=== PATIENT | female | born 1950 | race African-American/Black ===

== ENCOUNTER 2017-01-17 08:56 | Inpatient (IN) | payer OTHER ==
[2017-01-17] VITALS (43 sets, daily range): BP systolic 96–203; BP diastolic 49–150
[~2017-01-17] VITALS: Ht 160 cm; Wt 67.1 kg
--- NOTE | ~2017-01-17 | HC ---
[facility] [place] [address] CONSULTATION Name: AGUS JOLLEY Room #: 538-P [facility] IN M.R.#: [id number] Admission: 01/17/17 Attend Phys: Bill Britt MD Discharge: Date of : 54 Report #: [id number] THIS REPORT FOR: //name// CC: FAM unknown Bill Britt DATE OF SERVICE: 01/18/2017 REASON FOR CONSULTATION: I was asked to evaluate concerning fever, sepsis and back pain. HISTORY OF PRESENT ILLNESS: The patient is a 66-year-old who presented through the Emergency Room on 01/17/2017 with a 2-day history of persistent low back pain, along with this has been fever. Mild chills. No trauma. She does use street drugs, but denies any IV drug use. No previous arthritis or back pain issues. REVIEW OF SYSTEMS: Also notes, a mild cough with minimal sputum production. She has been nauseated. She had emesis today. No abdominal pain. No dysuria or frequency noted. She has sexually active. No arthritis symptoms, rash, chest pain. PAST MEDICAL HISTORY: Hypertension. She does state that she was supposed to see a vamp marker at some time in the future. MEDICATIONS: Included lovastatin and diltiazem. ALLERGIES: She has no known medication allergies. FAMILY HISTORY: Noncontributory. SOCIAL HISTORY: Recreational drug use. She lives with her children. PHYSICAL EXAMINATION: VITAL SIGNS: Maximum temperature was 103.3 degrees, currently afebrile, blood pressure is stable, CVP of 16. She is on 2 liters of oxygen per nasal cannula. She has a right upper extremity PICC, which is functioning well. She has had recorded 665 mL in and 500 mL out. GENERAL: She was alert and cooperative. She reported severe pain in her lumbar spine upon moving. SKIN: Unremarkable other than small eschar over her left patella. No adenopathy. HEENT: Unremarkable. NECK: Supple. LUNGS: Consolidation in the left base posteriorly. HEART: Regular, without murmur. [facility] [address] [place] [address] CONSULTATION Name: AGUS JOLLEY Room #: 538-P ADM IN M.R.#: [id number] Admission: 01/17/17 Attend Phys: Bill Britt MD Discharge: Date of : 54 Report #: [id number] ABDOMEN: Soft, nontender, no hepatosplenomegaly or mass appreciated. VAGINAL AND RECTAL: Not performed. EXTREMITIES: Unremarkable. NEUROLOGIC: Nonfocal. She had normal strength in her legs. Deep tendon reflexes were normal in the legs. Sensation was intact. BACK: Tender over the mid lumbar region to palpation and percussion. She had significant amount of pain with straight leg raising. LABORATORY STUDIES: Sodium 136, potassium 3.8, bicarbonate 24, creatinine 2.4. Liver function test normal. Procalcitonin was 30, lactate initially 3.2, now 0.7. INR 1.3, hemoglobin 11.5, white count 16.3, platelet count 106,000. ABG on room air, pO2 of 59, pCO2 of 31, pH 7.46. HIV negative. Urinalysis unremarkable. Urine culture negative. Blood cultures are positive, gram-positive cocci 2/2. Chest x-ray, right lower lobe infiltrate. CT scan of the abdomen showed colonic ileus with mild dilatation. She has a stone in the common bile duct without evidence of obstruction. IMPRESSION: A 66-year-old with fever, back pain and Gram-positive cocci bacteremia in the setting of recreational drug use. I am concerned about diskitis and vertebral osteomyelitis. Neurologically, she is intact. She does have acute renal failure. She has thrombocytopenia whether this is chronic or new is yet to be determined. I did not appreciate any hepatosplenomegaly. Would recommend continuing vancomycin and ceftriaxone. I did notice some consolidation in the left lung base, although her chest x-ray reports a small right lower lobe infiltrate. I do not think that this is the cause of her back pain or her sepsis. We will do STD screening. pelvic examination to primary care. Once her creatinine improves, we will do further imaging of her spine. We will start with a plain x-ray. Check echocardiogram and repeat blood cultures today. <ELECTRONICALLY SIGNED> By: Marek Velasquez MD 01/19/17 [id number] Marek Velasquez MD /nt
--- NOTE | ~2017-01-17 | EKG ---
[place] [address] [address] [facility] [address] ELECTROCARDIOGRAM REPORT Name: AGUS JOLLEY Room #: 243-P ADM IN M.R.#: [id number] Admission: 01/17/17 Attend Phys: Bill Britt MD Discharge: Date of : 54 Report #: [id number] THIS REPORT FOR: //name// [facility] ED Test Date: 2017-01-17 Test Time: 09:31:26 Pat Name: AGUS JOLLEY Department: Room: 243 Gender: F [employer] Sales Executive: odilon : 1950 Requested By: Cyndy Brand Order Number: [id number] MD: Mervin Hahn Measurements Intervals [place] Rate: 116 P: 53 RI: 121 QRS: -59 QRSD: 88 T: 91 QT: 316 QTc: 439 Interpretive Statements Sinus tachycardia Left anterior fascicular block Abnormal R-wave progression, late transition Nonspecific ST and T wave abnormality No previous ECG available for comparison Electronically Signed On 01-18-2017 11:43:44 CDT by Mervin Hahn [email or web address] <ELECTRONICALLY SIGNED> By: Mervin Hahn MD, [facility] 01/18/17 1143 0 Mervin Hahn MD, [facility] /EPI
--- NOTE | ~2017-01-17 | 2DMMODE ---
[facility] [address] [facility] [employer] [place] [address] 2 D/M-MODE ECHOCARDIOGRAM Name: AGUS JOLLEY Room #: 538-P [facility] IN .R.#: [id number] Admission: 01/17/17 Attend Phys: Bill Britt, Discharge: Date of : 54 Date of Service: 01/19/17 1353 Report #: [id number] THIS REPORT FOR: //name// APPROVED REPORT Study performed: 01/19/2017 12:17:55 EXAM: Comprehensive 2D, Doppler, and color-flow Echocardiogram Patient Location: Bedside/Room 538 Blood Pressure: 151/76 mmHg HR: 67 bpm Other Information Study Quality: Adequate Indications Rule out endocarditis. Sepsis, bacteremia. 2D Dimensions RVDd: 35.39 mm LVEF(%): 66.02 (>50%) IVSd: 9.40 (7-11mm) LVOT Diam: 19.35 (18-24mm) LVDd: 41.36 mm PWd: 8.55 (7-11mm) LVDs: 26.48 (25-40mm) Aortic Root: 31.12 mm Tirado's LVEF: 66.02 % Volumes Left Atrial Volume (Systole) Single Plane 4CH: 36.56 mL Single Plane 2CH: 39.23 mL LA ESV Index: 26.00 mL/m2 Aortic Valve AoV Peak Randolph.: 2.02 m/s AO Peak Gr.: 16.31 mmHg LV Max P.24 mmHg LV Max: 1.52 m/s Mitral Valve MV PHT: 59.24 ms MV E Max Randolph.: 1.08 m/s E/A Ratio: 0.8 MV A Randolph.: 1.28 m/s MV Decel. Time: 204.28 ms [facility] [address] [place] [address] 2 D/M-MODE ECHOCARDIOGRAM Name: [place] Room #: 538[facility] IN M.R.#: [id number] Admission: 01/17/17 Attend Phys: Bill Britt, Discharge: Date of : 54 Date of Service: 01/19/17 1353 Report #: [id number] Pulmonary Valve PV Peak Randolph.: 1.22 m/s PV Peak Gr.: 5.97 mmHg Tricuspid Valve TR Peak Randolph.: 3.35 m/s RAP Estimate: 5.00 mmHg TR Peak Gr.: 44.97 mmHg RVSP: 50.00 mmHg Left Ventricle The left ventricle is normal size. There is normal LV segmental wall motion. There is normal left ventricular wall thickness. Left ventricular systolic function is normal. LVEF is 60-65%. Grade I - abnormal relaxation pattern. Right Ventricle The right ventricle is normal size. The right ventricular systolic function is normal. Atria The left atrium size is normal. The right atrium size is normal. Aortic Valve The aortic valve is normal in structure. No aortic regurgitation is present. There is no aortic valvular stenosis. Mitral Valve Mitral valve leaflets are mildly thickened. Trace mitral regurgitation. Tricuspid Valve The tricuspid valve is normal in structure. There is mild tricuspid regurgitation. The right atrial pressure is estimated at 5 mmHg. There is moderate pulmonary hypertension with an estimated PAP of 50mmHg. Pulmonic Valve The pulmonary valve is normal in structure. Trace pulmonic regurgitation. Great Vessels The aortic root is normal in size. Ascending aorta is not well visualized. IVC is normal in size and collapses >50% with inspiration. Pericardium Trivial anterior pericardial effusion. [facility] [address] [place] [address] 2 D/M-MODE ECHOCARDIOGRAM Name: AGUS JOLLEY Room #: 538-P [facility] IN .R.#: [id number] Admission: 01/17/17 Attend Phys: Bill Britt, Discharge: Date of : 54 Date of Service: 01/19/17 1353 Report #: [id number] <Conclusion> The left ventricle is normal size. LVEF is 60-65%. The aortic valve is normal in structure. Mitral valve leaflets are mildly thickened. Trace mitral regurgitation. There is mild tricuspid regurgitation. The right atrial pressure is estimated at 5 mmHg. There is moderate pulmonary hypertension with an estimated PAP of 50mmHg. Trace pulmonic regurgitation. <ELECTRONICALLY SIGNED> By: Fei Gómez MD 01/19/17 1353 1353 135 Fei Gómez MD /INF
[2017-01-17 09:26] LABS: URINE BLOOD 3+ (Negative); URINE COLOR YELLOW; URINE GLUCOSE-RANDOM* NEGATIVE (Negative); URINE KETONES TRACE (Negative); URINE NITRITE NEGATIVE (Negative); URINE PROTEIN (DIPSTICK) 3+ (Negative); URINE SPECIFIC GRAVITY >= 1.030 (1.003-1.035); URINE UROBILINOGEN 0.2 E.U./dl (0.2-1.0)
[2017-01-17 09:32] LABS: ICTOTEST (BILI CONFIRMATORY) Negative (Negative); URINE BILIRUBIN NEGATIVE (Negative)
[2017-01-17 09:33] LABS: HEMOGLOBIN 14.4 gm/dL (12.0-15.0); MCH 28.5 pg (26.0-34.0); MCHC 33.4 g/dL (28.0-37.0); MCV 85.5 fL (80.0-100.0); PLATELET COUNT 138 thou/uL (150-400); RBC 5.03 mil/uL (4.20-5.00)
[2017-01-17] MEDS ORDERED: LISINOPRIL10 MG PO (09:34)
[2017-01-17] MEDS ORDERED: CARDIZEM30 MG PO (09:34)
[2017-01-17] MEDS ORDERED: LOVASTATIN 20 M20 MG PO (09:34)
[2017-01-17 09:36] LABS: MANUAL DIFF YES
[2017-01-17 09:39] LABS: AMORPHOUS URATES Moderate /LPF (None Seen); BACTERIA 1-9 Few /HPF (None Seen); CASTS None Seen /LPF (None Seen); SQUAMOUS None Seen /LPF (0-3); URINE RBC 0-2 Rare /HPF (0-2); URINE WBC 0-5 Rare /HPF (0-5)
[2017-01-17 10:05] LABS: ABSOLUTE NEUTROPHILS 17.9 thou/uL (1.4-8.2); TOTAL CELL COUNT 100
[2017-01-17 10:53] LABS: ALBUMIN 2.6 g/dL (3.4-5.0); CREATININE 3.2 mg/dL (0.6-1.0); DIRECT BILIRUBIN 0.3 mg/dL (<0.1-0.3); TOTAL PROTEIN 7.1 g/dL (6.4-8.2)
[2017-01-17 10:57] LABS: POTASSIUM 2.9 mmol/L (3.5-5.1)
[2017-01-17 12:06] LABS: ABG SAMPLE TYPE ARTERIAL; HCO3 21.8 mmol/L (22.0-26.0); LACTATE 1.47 mmol/L (0.5-2.0); O2(CT) 18.1 mL/dL (15.0-23.0); O2Hb 90.5 % (92.0-98.0); PCO2 31.5 mmHg (35.0-45.0); PO2 59.9 mmHg (80.0-100.0); pH 7.459 (7.360-7.450); sO2 92.5 % (92.0-98.0); tCO2 22.8 mmol/L (24.0-30.0)
[2017-01-17 12:07] LABS: STICK SITE R.BRACHIAL
[2017-01-17 14:35] LABS: ABG SAMPLE TYPE VENOUS; BE(vivo) -6.3 mmol/L (-2 to +3); HCO3 18.3 mmol/L (22.0-26.0); LACTATE 1.14 mmol/L (0.5-2.0); O2Hb VENOUS 56.2 (65.0-85.0); PCO2 VENOUS 33.5 mmHg (41.0-51.0); PO2 VENOUS 32.2 mmHg (35.0-45.0); sO2 VENOUS 59.8 % (65.0-85.0); tCO2 19.3 mmol/L (24.0-30.0)
[2017-01-17 14:36] LABS: STICK SITE LINE
[2017-01-17 15:19] LABS: CALCIUM 6.8 mg/dL (8.5-10.1); CREATININE 2.4 mg/dL (0.6-1.0)
[2017-01-17 15:24] LABS: POTASSIUM 2.8 mmol/L (3.5-5.1)
[2017-01-17 15:26] LABS: APTT 37.2 Seconds (24.5-32.8); INR 1.3; PROTIME 13.1 Seconds (9.3-11.4)
[2017-01-17 15:36] LABS: ABG SAMPLE TYPE VENOUS; BE(vivo) -4.7 mmol/L (-2 to +3); FIO2 21 %; HCO3 19.5 mmol/L (22.0-26.0); O2(CT) 12.6 mL/dL (15.0-23.0); PCO2 VENOUS 33.6 mmHg (41.0-51.0); PO2 VENOUS 40.1 mmHg (35.0-45.0); STICK SITE LINE; sO2 VENOUS 74.9 % (65.0-85.0); tCO2 20.6 mmol/L (24.0-30.0)
[2017-01-17 16:38] LABS: HIV-1 P24 AG Nonreactive (Nonreactive)
[2017-01-17 18:27] LABS: HEMOGLOBIN 12.5 gm/dL (12.0-15.0); MCH 28.2 pg (26.0-34.0); MCV 85.6 fL (80.0-100.0); RBC 4.44 mil/uL (4.20-5.00); RDW 15.1 % (10.5-14.5); WBC 19.6 thou/uL (4.0-11.0)
[2017-01-17 18:40] LABS: CALCIUM 7.4 mg/dL (8.5-10.1); CREATININE 2.7 mg/dL (0.6-1.0); POTASSIUM 3.3 mmol/L (3.5-5.1)
[2017-01-17 18:42] LABS: APTT 34.4 Seconds (24.5-32.8); INR 1.3; PROTIME 13.1 Seconds (9.3-11.4)
[2017-01-17 18:47] LABS: FIBRINOGEN 609.8 mg/dL (210-360)
[2017-01-18] VITALS (62 sets, daily range): BP systolic 88–200; BP diastolic 47–100
[2017-01-18 07:07] LABS: HEMATOCRIT 35.5 % (37.0-47.0); HEMOGLOBIN 11.5 gm/dL (12.0-15.0); MCH 28.1 pg (26.0-34.0); MCHC 32.4 g/dL (28.0-37.0); MCV 86.7 fL (80.0-100.0); RBC 4.1 mil/uL (4.20-5.00); RDW 15.1 % (10.5-14.5); WBC 16.3 thou/uL (4.0-11.0)
[2017-01-18 07:12] LABS: CALCIUM 7.6 mg/dL (8.5-10.1); CREATININE 2.4 mg/dL (0.6-1.0); POTASSIUM 3.8 mmol/L (3.5-5.1)
[2017-01-18 12:16] LABS: AMP/METHAMP Negative (Negative); BARBITURATES Negative (Negative); BENZODIAZEPINES Negative (Negative); COCAINE POSITIVE (Negative); METHADONE Negative (Negative); OPIATES POSITIVE (Negative); PCP Negative (Negative); THC Negative (Negative)
[2017-01-19 03:01] VITALS: BP 153/74
[2017-01-19 07:43] VITALS: BP 151/76
[2017-01-19 12:47] LABS: CREATININE 1.7 mg/dL (0.6-1.0); POTASSIUM 3.2 mmol/L (3.5-5.1)
[2017-01-19 14:08] LABS: HEPATITIS C VIRUS AB <0.1 (0.0-0.9)
[2017-01-19 15:35] VITALS: BP 158/74
[2017-01-19 20:00] VITALS: BP 115/39
[2017-01-20 04:00] VITALS: BP 133/71
[2017-01-20 04:28] LABS: HEMATOCRIT 30.6 % (37.0-47.0); HEMOGLOBIN 10.2 gm/dL (12.0-15.0); MCH 28.6 pg (26.0-34.0); MCHC 33.5 g/dL (28.0-37.0); MCV 85.5 fL (80.0-100.0); PLATELET COUNT 102 thou/uL (150-400); RBC 3.57 mil/uL (4.20-5.00); RDW 15.2 % (10.5-14.5); WBC 10.5 thou/uL (4.0-11.0)
[2017-01-20 04:32] LABS: MANUAL DIFF YES
[2017-01-20 04:36] LABS: CALCIUM 7.5 mg/dL (8.5-10.1); CREATININE 1.8 mg/dL (0.6-1.0); POTASSIUM 3.1 mmol/L (3.5-5.1)
[2017-01-20 06:27] LABS: ABSOLUTE NEUTROPHILS 8.1 thou/uL (1.4-8.2); TOTAL CELL COUNT 100
[2017-01-20 08:26] VITALS: BP 136/99
[2017-01-20 15:38] VITALS: BP 137/97
[2017-01-20 16:08] LABS: CHLAMYDIA TRACHOMATIS-PCR Negative (Negative); NEISSERIA GONORRHEA-PCR Negative (Negative)
[2017-01-20 20:00] VITALS: BP 135/99
[2017-01-21 04:00] VITALS: BP 182/96
[2017-01-21 06:04] LABS: HEMATOCRIT 33.3 % (37.0-47.0); HEMOGLOBIN 10.9 gm/dL (12.0-15.0); MCH 28.2 pg (26.0-34.0); MCHC 32.9 g/dL (28.0-37.0); MCV 85.9 fL (80.0-100.0); RBC 3.88 mil/uL (4.20-5.00); RDW 15.8 % (10.5-14.5); WBC 9.2 thou/uL (4.0-11.0)
[2017-01-21 06:24] LABS: CALCIUM 8.1 mg/dL (8.5-10.1); CREATININE 1.7 mg/dL (0.6-1.0)
[2017-01-21 09:49] VITALS: BP 155/99
[2017-01-21 20:00] VITALS: BP 142/93
[2017-01-21] MEDS ORDERED: NORVASC5 MG PO (20:34)
[2017-01-21] MEDS ORDERED: HYDROCHLOROTHIA25 M2 PO (20:35)
[2017-01-21] MEDS ORDERED: LISINOPRIL20 MG PO (20:35)
[2017-01-21] MEDS ORDERED: CARVEDILOL12.5 MG PO (20:36)
[2017-01-22 03:44] LABS: POTASSIUM 3.8 mmol/L (3.5-5.1)
[2017-01-22 03:51] LABS: MAGNESIUM 0.9 mg/dL (1.8-2.4)
[2017-01-22 04:00] VITALS: BP 152/82
[2017-01-22 07:29] VITALS: BP 132/80
[2017-01-22 15:56] VITALS: BP 132/80
[2017-01-22 21:26] VITALS: BP 125/74
[2017-01-23 02:45] VITALS: BP 187/85
[2017-01-23 07:40] VITALS: BP 163/100
[2017-01-23] MEDS ORDERED: AMOXICILLIN 50500 MG PO (10:14)
[2017-01-23] MEDS ORDERED: AMOXICILLIN875 MG PO (10:15)
[2017-01-23 13:15] LABS: CALCIUM 8.6 mg/dL (8.5-10.1); CREATININE 1.6 mg/dL (0.6-1.0)
[2017-01-23 13:21] VITALS: BP 148/94
[2017-01-23] MEDS ORDERED: LORTAB 5-325 M1 EACH PO (14:11)
== END 2017-01-23 16:05 | disposition home or self-care (01) | DRG 871 ==
LOC: ER 08:56 → 5S 10:12 → EROBS 10:12 → ICU 12:21 → EROBS 12:21 → ICU 12:46 → 5S 01-19 02:58
PROVIDERS: Hospitalist; Internal Medicine; Nurse Practitioner Family; Specialist
PROC: 02HV33Z Insertion of Infusion Device into Superior Vena Cava, Percutaneous Approach (ICD-10-PCS; principal; 2017-01-17)
PROC: B548ZZA Ultrasonography of Superior Vena Cava, Guidance (ICD-10-PCS; principal; 2017-01-17)
DX: A41.9 Sepsis, unspecified organism (principal); J15.9 Unspecified bacterial pneumonia; N17.0 Acute kidney failure with tubular necrosis; B37.3 Candidiasis of vulva and vagina; E87.6 Hypokalemia; D69.6 Thrombocytopenia, unspecified; M46.40 Discitis, unspecified, site unspecified; I10 Essential (primary) hypertension; E78.5 Hyperlipidemia, unspecified; Z79.899 Other long term (current) drug therapy
CPT/HCPCS: 10078; 10785; 27000